=== PATIENT | female | born 1995 | race Two or more races ===

== ENCOUNTER 2021-11-29 10:48 | Outpatient (CLI) | payer OTHER | END 2021-11-29 12:15 | disposition home or self-care (01) | LOC: PRENATAL 10:48 | PROVIDERS: ATTEND Obstetrics & Gynecology Maternal & Fetal Medicine | DX: O35.0XX0 Maternal care for (suspected) central nervous system malformation in fetus, not applicable or unspecified (principal); O35.3XX0 Maternal care for (suspected) damage to fetus from viral disease in mother, not applicable or unspecified ==

== ENCOUNTER 2022-02-21 13:54 | Inpatient (IN) | payer OTHER ==
[~2022-02-21] VITALS: Ht 162.6 cm; Wt 0.5 kg
[2022-02-21] MEDS ORDERED: PRENATA CHEWAB1 EACH (15:54)
== END 2022-02-25 17:28 | disposition home or self-care (01) | DRG 833 ==
LOC: OBS/DEL 13:54 → OB/GYN 18:00 → LDR 18:00 → OB/GYN 02-22 10:09
PROVIDERS: ADMIT Obstetrics & Gynecology; ATTEND Obstetrics & Gynecology
PROC: 4A1HXCZ Monitoring of Products of Conception, Cardiac Rate, External Approach (ICD-10-PCS; principal; 2022-02-21)
PROC: BU4CZZZ Ultrasonography of Uterus and Ovaries (ICD-10-PCS; 2022-02-21)
PROC: BY4FZZZ Ultrasonography of Third Trimester, Single Fetus (ICD-10-PCS; 2022-02-21)
DX: O60.03 Preterm labor without delivery, third trimester (principal); Z3A.32 32 weeks gestation of pregnancy; Z20.822 Contact with and (suspected) exposure to COVID-19

== ENCOUNTER 2022-03-26 09:45 | Inpatient (IN) | payer OTHER ==
[~2022-03-26] VITALS: Ht 162.6 cm; Wt 73.9 kg
[~2022-03-26 09:45] MED LIST: PRENATA CHEWAB1 EACH
[2022-03-26] MEDS ORDERED: PRENATAL TABLE1 EAC1 PO (09:52)
== END 2022-03-28 09:45 | disposition home or self-care (01) | DRG 807 ==
LOC: LDR 09:45 → OB/GYN 09:45
PROVIDERS: ADMIT Obstetrics & Gynecology; ATTEND Obstetrics & Gynecology
PROC: 10E0XZZ Delivery of Products of Conception, External Approach (ICD-10-PCS; principal; 2022-03-26)
PROC: 0UQMXZZ Repair Vulva, External Approach (ICD-10-PCS; 2022-03-26)
PROC: 4A1HXCZ Monitoring of Products of Conception, Cardiac Rate, External Approach (ICD-10-PCS; 2022-03-26)
DX: O70.0 First degree perineal laceration during delivery (principal); Z37.0 Single live birth; Z3A.37 37 weeks gestation of pregnancy; Z20.822 Contact with and (suspected) exposure to COVID-19